=== PATIENT | female | born 1945 | race Caucasian/White ===

== ENCOUNTER 2018-07-30 09:41 | Day surgery (SDC) | payer MEDICARE, OTHER ==
[2018-07-25 15:56] LABS: Urine Bacteria NONE SEEN /hpf (None Seen); Urine Blood Negative /uL (Negative); Urine Mucus FEW (None Seen); Urine Specific Gravity 1.031 (1.001-1.035); Urine WBC 1 /hpf (0 - 5)
[2018-07-25 16:03] LABS: Albumin 4.5 g/dL (3.4-5.0); Calcium 9.3 mg/dL (8.5-10.1)
[2018-07-25 16:08] LABS: Basophils # (auto) 0 uL; Eosinophils # (auto) 0.1 uL; Hematocrit 43.3 % (36.0-46.0); Monocytes # (auto) 0.5 uL; Neutrophils # (auto) 3.1 uL; Red Blood Cells 4.45 10^6/uL (4.0-5.20)
[2018-07-25 16:10] LABS: Basophils % (auto) 0.5 % (0.0-2.0); Eosinophils % (auto) 1.7 % (0.0-7.0); Hemoglobin 15.4 g/dL (12.2-16.2); Lymphocytes # (auto) 1.5 uL; Lymphocytes % (auto) 28.7 % (10.0-50.0); Mean Corpuscular Hemoglobin 34.5 pg (28.0-32.0); Mean Corpuscular Hgb Conc. 35.5 g/dL (32.0-36.0); Mean Corpuscular Volume 97.2 fL (80.0-100.0); Neutrophils % (auto) 59.1 % (37.0-80.0); Nucleated Red Blood Cells % 0.1 %; Platelet Count (auto) 170 10^3/uL (140-450); Red Cell Distribution Width 13.3 % (11.8-14.3); White Blood Cell 5.2 10^3/uL (4.4-10.8)
[2018-07-25 16:12] LABS: Bilirubin, Total 0.6 mg/dL (0.2-1.0); Total Protein 7.6 g/dL (6.4-8.2)
[2018-07-25 16:36] LABS: INR 0.98 (0.9-1.15); Partial Thromboplastin Time 26.8 sec (23.64-32.05)
[~2018-07-30] VITALS: Ht 165.1 cm; Wt 73.5 kg
[~2018-07-30 09:41] MED LIST: ASPI81TA27 PO; CALC600T10 OR; CHOL200031 PO; FOLI800T14 PO; GABA-339 PO; HYDR-4441 PO; LEVO75TA6 PO; LISI10TA6 PO; METH2.5T3 PO; METO-158 PO; MULTTAB61 PO; OMEG10003 PO; PANT40TA2 PO; SALS500T PO; TRAV0.00 EACHEYE
[2018-07-30] MEDS ORDERED: fentaNYL CITRATE 100 MCG/2 ML VL ONE ×2 (09:48→12:13)
[2018-07-30] MEDS ORDERED: SODIUM CHLORIDE LOCK 10 ML ONE ×2 (09:48→12:13)
[2018-07-30] MEDS ORDERED: ONDANSETRON HCL 4 MG/2 ML VIAL ONE ×2 (09:48→12:13)
[2018-07-30] MEDS ORDERED: PROPOFOL 10 MG/ML 20 ML IV ONE ×2 (09:48→12:13)
[2018-07-30] MEDS ORDERED: MIDAZOLAM HCL 1MG/1ML-2 ML VIAL ONE ×2 (09:48→12:13)
[2018-07-30] MEDS ORDERED: CLINDAMYCIN 600MG IV 50 ML IV ONE (12:20)
[2018-07-30] MEDS ORDERED: ROPIVACAINE 0.5% (5MG/ML) 20ML AMPULE IJ ONE (12:29)
[2018-07-30] MEDS ORDERED: HYDROmorphone HCL 2 MG/ML VL IV PRN (12:30)
[2018-07-30] MEDS ORDERED: METOCLOPRAMIDE HCL 5MG/ml INJ 2ml VIAL IV ONE (12:30)
[2018-07-30] MEDS ORDERED: KETOROLAC TROMETH 30 MG/ML 1ML VIAL IV ONE (12:30)
[2018-07-30 13:32] VITALS: BP 144/74
== END 2018-07-30 13:46 | disposition home or self-care (01) ==
LOC: SUR 09:41
PROVIDERS: ATTEND Podiatrist Foot & Ankle Surgery
DX: M21.622 Bunionette of left foot (principal); M21.621 Bunionette of right foot; I10 Essential (primary) hypertension; E03.9 Hypothyroidism, unspecified; K21.9 Gastro-esophageal reflux disease without esophagitis; G43.909 Migraine, unspecified, not intractable, without status migrainosus; M19.90 Unspecified osteoarthritis, unspecified site; E66.01 Morbid (severe) obesity due to excess calories; Z68.27 Body mass index [BMI] 27.0-27.9, adult; Z88.0 Allergy status to penicillin; Z79.82 Long term (current) use of aspirin; Z87.891 Personal history of nicotine dependence; Z79.890 Hormone replacement therapy; Z79.899 Other long term (current) drug therapy; Z90.710 Acquired absence of both cervix and uterus; Z98.890 Other specified postprocedural states
CPT/HCPCS: 28110; 36415; 80053; 81001; 85025; 85610; 85730; J2250; J2405; J2704; J2795; J3010; J3490